=== PATIENT | female | born 1945 | race Caucasian/White ===

== ENCOUNTER 2020-06-01 12:49 | Outpatient (CLI) | payer MEDICARE, SELFPAY ==
--- NOTE | ~2020-06-01 | XR_ITS ---
EXAMINATION: XR chest 2V EXAM DATE: 06/01/2020 13:16 INDICATION: Cough. TECHNIQUE: Frontal and lateral projections of the chest obtained and reviewed. Comparison is made to prior examination from 05/04/2017. FINDINGS: The lungs are clear. There are no pleural effusions. The cardiomediastinal silhouette is within normal limits. There is no pneumothorax suspected. The bones and soft tissues are unremarkab le. IMPRESSION: No acute cardiopulmonary findings. Reviewed, dictated and finalized at location A.
== END 2020-06-01 12:50 | disposition home or self-care (01) ==
LOC: ANHIMG 12:58
DX: R05 Cough (principal)
CPT/HCPCS: 71046

== ENCOUNTER 2021-01-20 13:00 | Outpatient (CLI) | payer MEDICARE, SELFPAY ==
--- NOTE | ~2021-01-20 | MM_ITS ---
EXAMINATION: MM screening [facility] w [facility] HISTORY: Screening mammogram TECHNIQUE: Craniocaudal and mediolateral oblique 3-D tomosynthesis images were obtained and synthetic 2-D images were generated. CAD analysis was submitted and interpreted. COMPARISON: 07/07/2019, 06/13/2018, 06/06/2017 bilateral digital screening mammogram examinations BREAST PARENCHYMAL COMPOSITION: There are scattered areas of fibroglandular density. FINDINGS: There is no evidence of suspicious mass, calcification, or architectural distortion to sugg est malignancy in either breast. There has been no suspicious interval change. IMPRESSION: 1. No mammographic evidence of malignancy. 2. Recommend routine screening mammography in one year. BI-RADS Category 1: Negative Reviewed, dictated and finalized at location A. NG [employer]
--- NOTE | ~2021-01-20 | DEXA_ITS ---
Bone Density Report Name: Liza Mejia Age: 75 Sex: Female Ethnicity: White Date of : 1945 Indication: postmenopausal; seizure disorder; hysterectomy; Referring Provider: LASHONDA DOTSON Study: Bone densitometry was performed. Exam Date: January 20, 2021 Accession number: [id number] Bone Density: Region BMD T-score Z-score Classification AP Spine (L1-L4) 1.008 -0.4 2.0 Normal Femoral Neck (Left) 0.699 -1.4 0.7 Osteopenia Total Hip (Left) 0.826 -1.0 0.8 Normal Total Hip Bilateral Avg 0.856 -0.8 1.1 Normal Femoral Neck (Right) 0.735 -1.0 1.0 Normal Total Hip (Right) 0.885 -0.5 1.3 Normal World Health Organization criteria for BMD impression classify patients as: Normal (T-score at or above -1.0), Osteopenia (T-score between -1.0 and -2.5), or Osteoporosis (T-score at or below -2.5). 10-year Fracture Risk(1): Major Osteoporotic Fracture 10% Hip Fracture 1.8% Reported Risk Factors: [place] (), Neck BMD=0.699, BMI=27.7 (1) FRAX(R) Version 3.08. Fracture probability calculated for an untreated patient. Fracture probability may be lower if the patient has received treatment. Previous Exams: Region Exam Age BMD T-score BMD Change BMD Change Date g/cm2 vs Baseline vs Previous AP Spine(L1-L4) 01/20/2021 75 1.008 -0.4 0.067(7.1%)# 0.067(7.1%)# 03/18/2014 68 0.941 -1.0 Total Hip(Left) 01/20/2021 75 0.826 -1.0 -0.067(-7.5%)# -0.067(-7.5%)# 03/18/2014 68 0.892 -0.4 Total Hip(Right) 01/20/2021 75 0.885 -0.5 -0.016(-1.8%)# -0.016(-1.8%)# 03/18/2014 68 0.900 -0.3 *Denotes significance at 95% confidence level, LSC for AP Spine = 0.022 g/cm2, LSC for Total Hip = 0.027 g/cm2 Clinical Information Provided by Patient: Has used the following medications: Calcium Has the following medical conditions: Any Seizure Disorders, Hysterectomy Patient maximum height was 59 Menopause Age: 47 Drinks caffeinated beverages Onset of menses at age 12 Number of children 2 Impression: The patient has low bone mass, based on the Left Femoral Neck T-score. The patient has an estimated ten-year risk of hip fracture of 1.8% and an estimated ten-year risk of major fracture of 10%, based on the WHO FRAX algorithm. No significant bone loss was observed. Discussion: BONE DENSITY IS LOW AT ONE OR MORE SKELETAL SITES. This patient's lowest T-score is low at one or more skeletal sites. It meets the World Health Organization's (WHO) c
== END 2021-01-20 13:01 | disposition home or self-care (01) ==
DX: Z13.820 Encounter for screening for osteoporosis (principal); Z78.0 Asymptomatic menopausal state; Z12.31 Encounter for screening mammogram for malignant neoplasm of breast; M85.852 Other specified disorders of bone density and structure, left thigh
CPT/HCPCS: 77063; 77067; 77080

== ENCOUNTER 2022-03-23 08:33 | Outpatient (CLI) | payer MEDICARE, SELFPAY ==
--- NOTE | ~2022-03-23 | MM_ITS ---
EXAMINATION: MM screening [facility] BI w [facility] HISTORY: Screening TECHNIQUE: Craniocaudal and mediolateral oblique 3-D tomosynthesis images were obtained and synthetic 2-D images were generated. CAD analysis was submitted and interpreted. COMPARISON: Comparison to multiple prior studies sequentially, with oldest reviewed study dated 06/2015. BREAST PARENCHYMAL COMPOSITION: Breast composed of scattered areas of fibroglandular density FINDINGS: There is no evidence of suspicious mass, calcification, or architectural distortion to sugg est malignancy in either breast. There has been no suspicious interval change. IMPRESSION: 1. No mammographic evidence of malignancy. 2. Recommend routine screening mammography in one year. BI-RADS Category 1: Negative Reviewed, dictated and finalized at location A.
== END 2022-03-23 08:34 | disposition home or self-care (01) ==
DX: Z12.31 Encounter for screening mammogram for malignant neoplasm of breast (principal)
CPT/HCPCS: 77063; 77067

== ENCOUNTER 2023-06-21 10:04 | Outpatient (CLI) | payer MEDICARE, SELFPAY ==
--- NOTE | ~2023-06-21 | MM_ITS ---
EXAMINATION: MM screening [facility] BI w [facility] HISTORY: Screening mammogram TECHNIQUE: Craniocaudal and mediolateral oblique 3-D tomosynthesis images were obtained and synthetic 2-D images were generated. CAD analysis was submitted and interpreted. COMPARISON: 03/23/2022, 01/20/2021, 07/07/2019 BREAST PARENCHYMAL COMPOSITION: There are scattered areas of fibroglandular density. FINDINGS: No suspicious mass, calcification, or architectural distortion are identified in either colby ast to suggest malignancy. There has been no suspicious interval change. IMPRESSION: 1. No mammographic evidence of malignancy. 2. Recommend routine screening mammography in one year. BI-RADS Category 1: Negative Reviewed, dictated and finalized at location A.
== END 2023-06-21 10:05 | disposition home or self-care (01) ==
DX: Z12.31 Encounter for screening mammogram for malignant neoplasm of breast (principal)
CPT/HCPCS: 77063; 77067

== ENCOUNTER 2024-02-14 15:06 | Outpatient (CLI) | payer MEDICARE, SELFPAY ==
--- NOTE | ~2024-02-14 | DEXA_ITS ---
Bone Density Report Name: SLY SOLIS Age: 78 Sex: Female Ethnicity: White Date of : 1945 Indication: postmenopausal; screening for osteoporosis; hysterectomy; Referring Provider: UNKNOWN, UNKNOWN Study: Bone densitometry was performed. Exam Date: February 14, 2024 Accession number: [id number] Bone Density: Region BMD T-score Z-score Classification AP Spine(L1-L4) 0.960 -0.8 1.8 Normal Femoral Neck (Left) 0.730 -1.1 1.1 Osteopenia Total Hip (Left) 0.889 -0.4 1.5 Normal Femoral Neck (Right) 0.740 -1.0 1.2 Normal Total Hip (Right) 0.869 -0.6 1.3 Normal Total Hip Mean 0.879 -0.5 1.4 Normal World Health Organization criteria for BMD impression classify patients as: Normal (T-score at or above -1.0), Osteopenia (T-score between -1.0 and -2.5), or Osteoporosis (T-score at or below -2.5). 10-year Fracture Risk(1): Major Osteoporotic Fracture 11% Hip Fracture 2.1% Reported Risk Factors: [place] (), Neck BMD=0.730, BMI=26.5 (1) FRAX(R) Version 3.08. Fracture probability calculated for an untreated patient. Fracture probability may be lower if the patient has received treatment. Previous Exams: Region Exam Age BMD T-score BMD Change BMD Change Date g/cm2 vs Baseline vs Previous AP Spine (L1-L4) 02/14/2024 78 0.960 -0.8 -0.047 (-4.7%) -0.047 (-4.7%) 01/20/2021 75 1.008 -0.4 Total Hip(Left) 02/14/2024 78 0.889 -0.4 0.064 (7.7%)* 0.064 (7.7%)* 01/20/2021 75 0.826 -1.0 Total Hip(Right) 02/14/2024 78 0.869 -0.6 -0.015 (-1.7%) -0.015 (-1.7%) 01/20/2021 75 0.885 -0.5 *Denotes significance at 95% confidence level, LSC for AP Spine = 0.022 g/cm2, LSC for Total Hip = 0.027 g/cm2 Clinical Information Provided by Patient: Has used the following medications: HRT (i.e. estrogen/hormone therapy), Calcium Has the following medical conditions: Hysterectomy Patient maximum height was 59 Menopause Age: 47 No regular weight bearing exercise Drinks caffeinated beverages Onset of menses at age 12 Number of children 2 Impression: The patient has low bone mass, based on the Left Femoral Neck T-score. The patient has an estimated ten-year risk of hip fracture of 2.1% and an estimated ten-year risk of major fracture of 11%, based on the WHO FRAX algorithm. The BMD for the AP Spine (L1-L4) decreased, changing by -4.7% since the last DXA exam. Discussion: BONE DENSITY IS LOW AT ONE OR MORE SKELETA
== END 2024-02-14 15:07 | disposition home or self-care (01) ==
DX: Z78.0 Asymptomatic menopausal state (principal); Z13.820 Encounter for screening for osteoporosis; M85.852 Other specified disorders of bone density and structure, left thigh
CPT/HCPCS: 77080

== ENCOUNTER 2024-04-27 15:26 | Inpatient (IN) | payer MEDICARE, SELFPAY ==
[2024-04-27] VITALS (26 sets, daily range): BP systolic 68–157; BP diastolic 40–86; PULSE 44–81; RESP 12–22; TEMP 36.2–36.6; O2SAT 96–100; BMI 26.0; BMI 27.6
--- NOTE | ~2024-04-27 | CT_ITS ---
CT abdomen pelvis w con Ordering provider: Jose Carbone History: 78 years Female with . ab pain . Comparison: None. Technique: CT abdomen and pelvis with IV and without oral contrast. Radiation reduction technique uti lized. The DLP is 281.35 mGy. Findings: VISUALIZED LOWER CHEST: Bilateral dependent atelectatic changes. UPPER ABDOMINAL ORGANS: Liver: Normal. Gallbladder: Normal. Spleen: Normal. Stomach/duodenum: Small sliding hiatus hernia. Pancreas: Slight dilatation of the pancreatic duct. Possibility of pancreatic divisum is not excluded . Adrenals: Normal. Kidneys: Tiny cyst in the left kidney midpole medially tiny cyst in the right kidney midpole laterall y. PELVIC ORGANS: The bladder shows slightly thickened wall. BOWEL AND MESENTERY: Colon: Thickened wall of the rectum and sigmoid colon with no definite diverticulitis. Colitis is pos sible. Appendix is not demonstrated. Small Bowel: Normal. No obstruction. Peritoneum/mesentery: No free air or free fluid. No mesenteric lymphadenopathy. RETROPERITONEUM: Mild atheromatous disease of the abdominal aorta. Small bilateral aortic lymph nod es are noted. MUSCULOSKELETAL: Superficial soft tissues: The superficial soft tissues are normal. Bones: Age appropriate degenerative changes of the spine. Compression fracture of T11 and T12 is note d most likely chronic. Bilateral sacroiliacs. IMPRESSION: 1. Slightly thickened wall of the rectum and sigmoid colon extending to the right hepatic flexure. T his is suggestive of colitis. Follow-up advised. 2. Small sliding hiatus hernia. Reviewed, dictated and finalized at location A. IMPRESSION: 1. Slightly thickened wall of the rectum and sigmoid colon extending to the ri ght hepatic flexure. This is suggestive of colitis. Follow-up advised. 2. Small sliding hiatus hernia.
--- NOTE | ~2024-04-27 | CT_ITS ---
CT brain wo con Ordering provider: Jose Carbone MD History: 78 years Female with . trauma . Comparison: None. Technique: CT of the head without contrast. Radiation reduction technique utilized. The DLP is 529.67 mGy. FINDINGS: BRAIN PARENCHYMA AND CSF SPACES: Deep white matter ischemic changes with mild brain atrophy. No midli ne shift, mass effect or hemorrhage. The brain parenchyma and CSF spaces are otherwise normal. VISUALIZED PARANASAL SINUSES: Well aerated. MASTOIDS: Well aerated. BONES: The bones appear intact. SOFT TISSUES: Visualized nasopharynx is normal. Superficial soft tissues are normal. IMPRESSION: No acute intracranial findings. Reviewed, dictated and finalized at location A.
--- NOTE | 2024-04-27 15:26 | ECG_ITS ---
Test Date: 2024-04-27 15:51:29 Measurements Intervals Apex Rate: 43 P: 23 MA: 176 QRS: 30 QRSD: 84 T: 38 QT: 481 QTc: 411 Interpretive Statements MARKED SINUS BRADYCARDIA ABNORMAL ECG No previous ECG available for comparison Electronically Signed On 04-28-2024 11:30:01 CDT by Krishna Chau M.D.
--- NOTE | 2024-04-27 15:38 | ED.ABDPAIN ---
HPI - Abdominal Pain General Chief Complaint: Abdominal Pain <Jose Carbone MD - Last Filed: 04/28/24 07:03> Stated Complaint: DIVERTICULITIS FLARE, NEAR SYNCOPAL EVENT <Jose Carbone MD - Last Filed: 04/28/24 07:03> Time Seen by Provider: 04/27/24 16:58 <Jose Carbone MD - Last Filed: 04/28/24 07:03> Source: patient <Elle Smith PA-C - Last Filed: 04/27/24 18:10> Mode of arrival: EMS <Elle Smith PA-C - Last Filed: 04/27/24 18:10> Limitations: no limitations <Elle Smith PA-C - Last Filed: 04/27/24 18:10> History of Present Illness HPI narrative: 78-year-old female presenting to the emergency department for evaluation for a syncopal episode and head injury. Patient has been dealing with issues with suspected diverticulitis over the course of the last week. Patient initially had some issues with constipation had lower abdominal pain. Patient had follow-up with primary care physician and was started on what sounds to be Cipro and Flagyl. Patient was also taking some stool softeners. Patient reports that she did have results from the stool softeners. Patient was walking to the bathroom when she almost had a syncopal episode hand after using the bathroom patient had a 2nd syncopal episode resulting in a fall and head injury. Patient denies any pain or injury other than a contusion to her forehead <Jose Carbone MD - Last Filed: 04/28/24 07:03> Related Data Home Medications: Home Medications Medication Instructions Recorded Confirmed amlodipine 10 mg tablet (Norvasc) 10 mg PO DAILY 04/27/24 04/27/24 atorvastatin 20 mg tablet (Lipitor) 20 mg PO DAILY 04/27/24 04/27/24 ciprofloxacin HCl 500 mg tablet 500 mg PO DAILY 04/27/24 04/27/24 desoximetasone 0.25 % topical cream 0.25 applic topical PRN PRN eczema 04/27/24 04/27/24 estradiol 0.05 mg/24 hr weekly 0.05 mg transdermal WEEKLY hot 04/27/24 04/27/24 transdermal patch (Climara) flashes fluoride (sodium) 1.1 % dental 1.1 applic dental DAILY for crowns 04/27/24 04/27/24 cream (PreviDent 5000 Plus) hydroxychloroquine 200 mg tablet 200 mg PO BID 04/27/24 04/27/24 labetalol 300 mg tablet 300 mg PO BID 04/27/24 04/27/24 lisinopril 40 mg tablet 40 mg PO BID 04/27/24 04/27/24 metronidazole 250 mg tablet 250 mg PO DAILY Diverticulitis 04/27/24 04/27/24 omeprazole 20 mg capsule,delayed 20 mg PO DAILY 04/27/24 04/27/24 release ondansetron HCl 4 mg tablet 4 mg PO PRN VOMITING 04/27/24 04/27/24 phenobarbital 16.2 mg tablet 16.2 mg PO BID Diverticulitis 04/27/24 04/27/24 sertraline 50 mg tablet 50 mg PO DAILY 04/27/24 04/27/24 trazodone 100 mg tablet 100 mg PO HS 04/27/24 04/27/24 zolpidem 12.5 mg tablet,extended 12.5 mg PO HS help with sleep 04/27/24 04/27/24 release,multiphase <Jose Carbone MD - Last Filed: 04/28/24 07:03> Allergies/Adverse Reactions: Allergies Allergy/AdvReac Type Severity Reaction Status Date / Time NSAIDS (Non-Steroidal Allergy Unknown abdominal Verified 04/27/24 20:05 Anti-Inflamma pain Penicillins Allergy Unknown blisters Verified 04/27/24 20:05 albuterol Allergy Numbness Verified 04/27/24 20:05 <Jose Carbone MD - Last Filed: 04/28/24 07:03> Review of Systems Review of Systems: All systems reviewed & are unremarkable except as noted in HPI and below <Jose Carbone MD - Last Filed: 04/28/24 07:03> [facility] Past Medical History Medical History: Medical History (Updated 04/27/24 @ 22:40 by Carina Hermosillo PA-C) Gastroesophageal reflux disease Hyperlipidemia Hypertension <Jose Carbone MD - Last Filed: 04/28/24 07:03> Surgical History Surgical History: Surgical History (Updated 04/27/24 @ 22:38 by Carina Hermosillo PA-C) History of bilateral cataract extraction History of bunionectomy of both great toes History of hysterectomy History of sinus surgery History of tonsillectomy <Jose Carbone MD - Last Filed: 04/28/24 07:
[2024-04-27 15:49] LABS: Basophils Percent Auto 0.4 % (0.2-1.2); Hematocrit 33.1 % (37.0-47.0); Hemoglobin 11.1 g/dL (12.0-15.0); Immature Granulocyte Absolute 0.05 K/mm3 (0.00-0.031); Immature Granulocyte Percent A 0.6 % (0-0.5); Lymphocytes Absolute Auto 1.24 K/mm3 (0.9-3.2); Lymphocytes Percent Auto 14.6 % (18.3-44.2); Mean Corpuscular HGB Conc 33.5 g/dl (32-36); Mean Corpuscular Hemoglobin 31.4 pg (26-34); Mean Corpuscular Volume 93.8 fl (80-100); Mean Platelet Volume 9.7 fl (7.4-10.4); Monocytes Absolute Auto 0.7 K/mm3 (0.1-0.6); Monocytes Percent Auto 8.2 % (2.6-8.5); Neutrophils Absolute Auto 6.5 K/mm3 (1.3-6.7); Neutrophils Percent Auto 76.2 % (45.5-73.1); Platelet Count Result 261 k/mm3 (150-375); Red Blood Count 3.53 M/mm3 (4.2-5.4); Red Cell Distribution Width 12.8 % (11.5-14.5); White Blood Count 8.5 K/mm3 (4.5-10.0)
[2024-04-27] MEDS: SODIUM CHLORIDE 0.9% IV 1,000 ML 999 ML IV CONT (16:10)
[2024-04-27 16:18] LABS: Alanine Aminotransferase 17 U/L (6-35); Albumin Level 3.4 g/dL (3.5-5.1); Alkaline Phosphatase 49 U/L (38-126); Anion Gap 6 mmol/L (4-12); Aspartate Amino Transferase 28 U/L (14-36); Bilirubin,Total 0.2 mg/dL (0.2-1.3); Blood Urea Nitrogen 15 mg/dL (7-17); Calcium 9.9 mg/dL (8.4-10.2); Carbon Dioxide 25 mmol/L (22-30); Chloride 103 mmol/L (98-107); Estimated Glomerular Filt Rate 40; Glucose 105 mg/dL (65-110); Lipase 77 U/L (23-300); Potassium 3.4 mmol/L (3.4-5.0); Sodium 134 mmol/L (137-145)
[2024-04-27 16:19] LABS: Lactic Acid Reflex 1.1 mmol/L (0.7-2.0)
[2024-04-27] MEDS: LACTATED RINGERS 1,000 ML 500 ML IV CONT (17:08)
[2024-04-27 18:44] LABS: Appearance Urine Cloudy (Clear); Bacteria Urine 4+ /hpf; Bilirubin Urine Negative (Negative); Blood Urine Negative (Negative); Color Urine Yellow (Yellow); Glucose Urine UA Negative (Negative); Ketones Urine Negative (Negative); Leukocyte Esterase Ur Negative LEU/UL (Negative); Need Manual Microscopic Reviewed; Nitrate Urine Negative (Negative); Protein Urine Negative (Negative); Squamous Epithelial Cell Urine Few /hpf (Few); Urobilinogen Urine 0.2 mg/dL (<2.0)
[2024-04-27 18:47] LABS: Add Urine Microscopic? YES
--- NOTE | 2024-04-27 18:57 | PM.IMHP ---
H&P: HPI History of Present Illness Date/Time: 04/27/24 19:30 Chief Complaint: Syncope. Narrative: This is a very pleasant 78-year-old female who presented to the emergency department via EMS from home for evaluation after several syncopal episodes. The patient provides the following history. She has not been feeling well for nearly a week and initially had nausea and vomiting for about 5 days. She reports being constipated as well but then describes tenesmus. Her doctor called her in some Zofran and she saw him in office the next day at which time she was diagnosed with suspected diverticulitis as she had tenderness to palpation in the left lower quadrant. She has since started to have ?mushy? bowel movements after starting stool softeners. Not long prior to arrival she was on the toilet having a bowel movement when she developed abdominal cramping with weakness, lightheadedness, nausea, and diaphoresis. She has and passed out and fell forward, hitting her head. heard her fall and came to help her up at which time she had a 2nd syncopal episode. She lost consciousness again when he tried to get her up so he called 911. She denies fever, recent antibiotic use, sick contacts, vertigo, visual changes, chest pain, shortness of breath, pleuritic pain, palpitations, sensations of racing heart, hematemesis, melena, and hematochezia. In the ED: She was afebrile on arrival. Orthostatic vital signs were positive (105/53 to 68/40). Pulse has been in the mid to upper 40s to 50s a majority of the time. Labs were significant for WBC count of 8.5, hemoglobin 11.1, sodium 134, BUN 15, creatinine 1.30, total protein 6.0, albumin 3.4. Urine was cloudy with 11 to 20 WBC and 4+ bacteria. No nitrites or leukocyte esterase noted. Head CT showed no acute findings. CT of the abdomen and pelvis shows slightly thickened wall of the rectum and sigmoid colon extending to the right hepatic flexure suggestive of colitis and a small sliding hiatus hernia. She was given an IV fluid bolus with improvement in her orthostatic vital signs. She was started on ceftriaxone and metronidazole for colitis and she is being admitted in this setting for further treatment and evaluation. Review of Systems Review of Systems: 12 systems were reviewed and are negative except for as per HPI. [facility] Past Medical History Medical History (Updated 04/27/24 @ 22:40 by Carina Hermosillo PA-C) Gastroesophageal reflux disease Hyperlipidemia Hypertension Surgical History Surgical History (Updated 04/27/24 @ 22:38 by Carina Hermosillo PA-C) History of bilateral cataract extraction History of bunionectomy of both great toes History of hysterectomy History of sinus surgery History of tonsillectomy Family History Family History Other Colon cancer Diabetes mellitus Lung cancer Social History Social History (Updated 04/27/24 @ 22:39 by Carina Hermosillo PA-C) Social History: Surrogate medical decision maker: Ana Yen, spouse. Code status: Full code. Smoking status: Never smoker Second hand tobacco smoke exposure: Yes Alcohol intake: current Substance use: never Do You Feel Safe in your Home?: Yes Lack of Transportation: No Lack of Food: Never True Current Housing: Decline to Answer Concerned About Future Housing: No Difficulty Paying Gas/Electric Bills: No Difficulty Paying for Meds: No Currently Unemployed: No Education: Decline to Answer Difficulty w/ Childcare or Family Care: No Spiritual care concerns: No Meds Home Medications and Allergies Home Medications Medication Instructions Recorded Confirmed Type amlodipine 10 mg tablet (Norvasc) 10 mg PO DAILY 04/27/24 04/27/24 History atorvastatin 20 mg tablet (Lipitor) 20 mg PO DAILY 04/27/24 04/27/24 History ciprofloxacin HCl 500 mg tablet 500 mg PO DAILY 04/27/24 04/27/24 History desoximetasone 0.25 % topical cr
--- NOTE | 2024-04-27 20:04 | PC.NURSE ---
This patient, Liza Mejia, was admitted to Medical Room 345-01. Patient/family oriented to hospital policies and general routines including ID bracelet, bed and alarms, visiting hours, pain management, procedures, bathroom and other care routines, personal items, smoking policy, room service/diet, and visiting hours. Information on how to activate the Rapid Response Team has been discussed. Patient/Family are encouraged to report perceived risks to care and to ask questions if they do not understand what they are told or what they should do.
[2024-04-27] MEDS: SODIUM CHLORIDE 0.9% IV 1,000 ML 100 ML IV CONT (22:39)
[2024-04-27] MEDS: traZODone HCL 50 MG TABLET 100 MG PO (22:40)
[2024-04-27] MEDS: HYDROXYCHLOROQUINE SULFATE 200 MG TABLET PO (22:40)
[2024-04-27] MEDS: metroNIDAZOLE 500 MG/ISO 100ML 500 MG/100 ML BAG 100 MG IVPB (22:40)
[2024-04-28] VITALS (14 sets, daily range): BP systolic 120–183; BP diastolic 44–75; PULSE 67–77; RESP 16–20; TEMP 36.2–36.9; O2SAT 98–100
[2024-04-28] MEDS: metroNIDAZOLE 500 MG/ISO 100ML 500 MG/100 ML BAG 100 MG IVPB ×3 (05:23→21:19)
[2024-04-28 05:52] LABS: Hematocrit 31.2 % (37.0-47.0); Hemoglobin 10.1 g/dL (12.0-15.0); Mean Corpuscular HGB Conc 32.4 g/dl (32-36); Mean Corpuscular Hemoglobin 31.5 pg (26-34); Mean Corpuscular Volume 97.2 fl (80-100); Mean Platelet Volume 9.8 fl (7.4-10.4); Platelet Count Result 229 k/mm3 (150-375); Red Blood Count 3.21 M/mm3 (4.2-5.4); Red Cell Distribution Width 12.9 % (11.5-14.5); White Blood Count 8.2 K/mm3 (4.5-10.0)
[2024-04-28 06:09] LABS: Anion Gap 5 mmol/L (4-12); Blood Urea Nitrogen 11 mg/dL (7-17); Calcium 8.6 mg/dL (8.4-10.2); Carbon Dioxide 22 mmol/L (22-30); Chloride 108 mmol/L (98-107); Estimated Glomerular Filt Rate 54; Glucose 91 mg/dL (65-110); Magnesium 1.7 mg/dL (1.6-2.3); Sodium 135 mmol/L (137-145)
[2024-04-28] MEDS: ATORVASTATIN 20 MG TABLET PO (08:28)
[2024-04-28] MEDS: POTASSIUM CHLORIDE 20 MEQ ER TABLET 40 MEQ PO (08:28)
[2024-04-28] MEDS: PANTOPRAZOLE 40 MG TABLET PO (08:29)
[2024-04-28] MEDS: SERTRALINE HCL 50 MG TABLET PO (08:29)
[2024-04-28 12:27] LABS: Potassium 2.9 mmol/L (3.4-5.0)
--- NOTE | 2024-04-28 12:41 | PM.IMPN ---
Progress Note: A&P Assessment and Plan (1) Syncope: Qualifiers: Syncope type: unspecified Qualified Code(s): R55 - Syncope and collapse Code(s): R55 - Syncope and collapse Status: Acute Assessment and Plan: Patient presented to the ED due to syncope and collapse. She was found to have positive orthostatics as well as CT scan showing colitis. Monitor on telemetry Echocardiogram pending. Could be due to high vagal tone as she is now in a sinus rhythm. Labetalol has been placed on hold as have her other antihypertensives given the orthostasis. Dry on presentation and started on IV fluids. Continue to monitor orthostatic vital signs initiate fall precautions. (2) Orthostatic hypotension: Code(s): I95.1 - Orthostatic hypotension Status: Acute Assessment and Plan: Orthostatics on presentation 157/61 laying, 141/68 sitting and 131/65 standing 04/28 orthostatics was 62/64 lying, 156/63 sitting, 146/70 standing (not positive) IV fluids discontinued. (3) Colitis: Code(s): K52.9 - Noninfective gastroenteritis and colitis, unspecified Status: Acute Assessment and Plan: Patient experiencing lower abdominal pain as well as diarrhea presentation. CT abdomen pelvis shows slightly thickened rectal wall and sigmoid colon extending to the right hepatic flexure suggestive of colitis. Started on Rocephin and Flagyl 04/27 Stool cultures pending Patient tolerating diet (4) Dehydration: Code(s): E86.0 - Dehydration Status: Resolved Assessment and Plan: Patient dry on presentation and fluids given. 04/28 IV fluids discontinued. (5) Hypokalemia: Code(s): E87.6 - Hypokalemia Status: Acute Assessment and Plan: 04/28 potassium of 3.0 patient given 40 meq p.o. potassium chloride. Repeat potassium in the afternoon showed a potassium of 2.9. Patient given IV potassium chloride. Will repeat potassium this evening. Likely due to patient's diarrhea and IV fluid hydration. IV fluids discontinued. (6) Hypertension: Code(s): I10 - Essential (primary) hypertension Status: Acute Assessment and Plan: Hold labetalol due to positive orthostatics and bradycardia on presentation. (7) Bradycardia: Code(s): R00.1 - Bradycardia, unspecified Status: Resolved Assessment and Plan: Resolved after starting on IV fluids. Subjective Date/time seen: 04/28/24 12:41 Interval history: Patient feeling much better and denies any dizziness or lightheadedness when sitting or standing and also says her diarrhea is resolved. She denies any urinary frequency, urgency or dysuria. Will likely be able to discharge once urine cultures come back. She is eating and drinking appropriately Exam Narrative: GENERAL: Comfortable, no acute distress HENMT: moist mucous membranes EYES: EOM intact b/l NECK: no lymphadenopathy RESPIRATORY: clear to auscultation, no increased respiratory effort CARDIO: Regular rate and rhythm GI: soft, nontender, bowel sounds present SKIN/EXTREMITIES: no rashes, no edema, no redness or tenderness NEURO: PROM intact, answers questions appropriately, A&O x4 Objective Data Vital Signs Vital Signs: Vital Signs - 24 hr 04/27/24 15:36 04/27/24 16:04 04/27/24 16:04 Temperature 97.9 F Pulse Rate 49 L 44 L 46 L Respiratory Rate 16 Blood Pressure 109/63 114/60 105/53 L Pulse Oximetry 100 Oxygen Delivery Room Air 04/27/24 16:04 04/27/24 17:50 04/27/24 17:50 Temperature Pulse Rate 50 L 57 L 68 Respiratory Rate Blood Pressure 68/40 L 136/63 139/86 Pulse Oximetry Oxygen Delivery 04/27/24 17:50 04/27/24 15:36 04/27/24 15:37 Temperature Pulse Rate 69 49 L 48 L Respiratory Rate 19 12 Blood Pressure 118/59 L 109/63 Pulse Oximetry 100 96 Oxygen Delivery 04/27/24 15:45 04/27/24 15:46 04/27/24 16:
[2024-04-28] MEDS: POTASSIUM CHLORIDE INJ 40 MEQ in SODIUM CHLORIDE 0.9% IV 500 ML 130 MEQ IVPB (16:26)
--- NOTE | 2024-04-28 19:03 | ECHO_ITS ---
Patient Info Name: Liza Mejia Age: 78 years : 1945 Gender: Female Ht: 59 in Wt: 126 lbs BSA: 1.56 m2 HR: 68 bpm BP: 120 / 44 mmHg Heart Rhythm: Sinus Rhythm Technical Quality: Good Exam Date: 04/28/2024 7:42 AM Exam Location: Echo Lab Patient Status: Outpatient Admit Date: 04/27/2024 Staff Ordering Physician: Carina Hermosillo PA-C Transmission And Protection Engineer: Renuka Jeong RDCS Attending Provider: Alcon Dave MD Referring Physician: Jaimee OSBORNE; Exam Type: CA echo doppler color flow Study Info Indications R00.1 - Bradycardia, unspecified R55 - Syncope and collapse Complete two-dimensional, color flow and Doppler transthoracic echocardiogram is performed. Summary 1. Complete two-dimensional, color flow and Doppler transthoracic echocardiogram is performed. 2. Normal left ventricular size with hyperdynamic systolic function and grade 1 diastolic noncompliance. 3. Sigmoid septal hypertrophy of the elderly. 4. Mild left atrial enlargement. 5. Trivial mitral regurgitation. Left Ventricle Left ventricular chamber dimension is normal. Left ventricular systolic function is hyperdynamic, estimated at >70%. The left ventricular diastolic function is grade I diastolic dysfunction. Right Ventricle Right ventricular chamber dimension is normal. Left Atria Left atrial chamber dimension is mildly enlarged. Right Atria Right atrial chamber dimension is normal. Aortic Valve The aortic valve is trileaflet. There is mild aortic valve sclerosis. Pulmonic Valve The pulmonic valve is normal. Mitral Valve The mitral valve has normal leaflets. There is trace mitral valve regurgitation. Tricuspid Valve The tricuspid valve leaflets are normal. Pericardium/Pleural The pericardium appears normal. Aorta The aortic root size at the sinus of Valsalva is normal. Left Ventricular Outflow Tract Name Value Normal LVOT 2D LVOT Diameter 2.0 cm LVOT Doppler LVOT Peak Gradient 8 mmHg LVOT Mean Gradient 4 mmHg LVOT VTI 29 cm LVOT VTI/AV VTI Ratio 0.9 LVOT Stroke Volume 89 ml LVOT CO 6.2 l/min LVOT CI 4.0 l/min/m2 Pulmonic Valve Name Value Normal RVOT Doppler RVOT Peak Gradient 2 mmHg PV Doppler PV Peak Gradient 4 mmHg Mitral Valve Name Value Normal MV Doppler MV Decel Gates 404 cm/s2 MV PHT 65 ms
[2024-04-28] MEDS: traZODone HCL 50 MG TABLET 100 MG PO (21:19)
[2024-04-28] MEDS: ZOLPIDEM TARTRATE (*CRX) 5 MG TABLET 10 MG PO (21:20)
[2024-04-28] MEDS: ONDANSETRON INJ 4 MG/2 ML VIAL IV PUSH (23:30)
[2024-04-29] VITALS (14 sets, daily range): BP systolic 148–193; BP diastolic 68–86; PULSE 69–86; RESP 18–20; TEMP 36.1–36.9; O2SAT 98–100
[2024-04-29] MEDS: PROCHLORPERAZINE EDISYLATE 10 MG/2 ML VIAL IV PUSH (03:31)
[2024-04-29] MEDS: ONDANSETRON INJ 4 MG/2 ML VIAL IV PUSH (05:30)
[2024-04-29] MEDS: metroNIDAZOLE 500 MG/ISO 100ML 500 MG/100 ML BAG 100 MG IVPB (05:30)
[2024-04-29 05:57] LABS: Hemoglobin 10.7 g/dL (12.0-15.0); Mean Corpuscular HGB Conc 33.4 g/dl (32-36); Mean Corpuscular Hemoglobin 31.7 pg (26-34); Mean Corpuscular Volume 94.7 fl (80-100); Mean Platelet Volume 9.8 fl (7.4-10.4); Platelet Count Result 250 k/mm3 (150-375); Red Blood Count 3.38 M/mm3 (4.2-5.4); Red Cell Distribution Width 13.1 % (11.5-14.5); White Blood Count 11.9 K/mm3 (4.5-10.0)
[2024-04-29 06:24] LABS: Anion Gap 6 mmol/L (4-12); Blood Urea Nitrogen 9 mg/dL (7-17); Calcium 8.5 mg/dL (8.4-10.2); Carbon Dioxide 29 mmol/L (22-30); Chloride 104 mmol/L (98-107); Estimated Glomerular Filt Rate > 60; Glucose 111 mg/dL (65-110); Sodium 139 mmol/L (137-145)
[2024-04-29] MEDS: POTASSIUM CHLORIDE 20 MEQ ER TABLET 40 MEQ PO (08:09)
[2024-04-29] MEDS: PANTOPRAZOLE 40 MG TABLET PO ×2 (08:10→20:47)
[2024-04-29] MEDS: POTASSIUM CHLORIDE INJ 40 MEQ in SODIUM CHLORIDE 0.9% IV 500 ML 130 MEQ IVPB (08:10)
[2024-04-29] MEDS: SERTRALINE HCL 50 MG TABLET PO (08:10)
[2024-04-29] MEDS: ATORVASTATIN 20 MG TABLET PO (08:10)
[2024-04-29 12:19] LABS: Potassium 4.3 mmol/L (3.4-5.0)
--- NOTE | 2024-04-29 13:10 | PM.IMPN ---
Progress Note: A&P Assessment and Plan (1) Syncope: Qualifiers: Syncope type: unspecified Qualified Code(s): R55 - Syncope and collapse Code(s): R55 - Syncope and collapse Status: Acute Assessment and Plan: Patient presented to the ED due to syncope and collapse. She was found to have positive orthostatics as well as CT scan showing colitis. Monitor on telemetry Echocardiogram EF >70%, grade I diastolic dysfunction Could be due to high vagal tone as she is now in a sinus rhythm. Labetalol has been placed on hold as have her other antihypertensives given the orthostasis. Dry on presentation and started on IV fluids; IV fluids discontinued on 04/28. Continue to monitor orthostatic vital signs initiate fall precautions. (2) Orthostatic hypotension: Code(s): I95.1 - Orthostatic hypotension Status: Acute Assessment and Plan: Orthostatics on presentation 157/61 laying, 141/68 sitting and 131/65 standing 04/28 orthostatics was 62/64 lying, 156/63 sitting, 146/70 standing (not positive) IV fluids discontinued. (3) Colitis: Code(s): K52.9 - Noninfective gastroenteritis and colitis, unspecified Status: Acute Assessment and Plan: Patient experiencing lower abdominal pain as well as diarrhea presentation. CT abdomen pelvis shows slightly thickened rectal wall and sigmoid colon extending to the right hepatic flexure suggestive of colitis. Started on Rocephin and Flagyl 04/27, changed to Levaquin on 04/29 due to GI upset. Stool cultures NGTD Patient tolerating diet (4) Dehydration: Code(s): E86.0 - Dehydration Status: Resolved Assessment and Plan: Patient dry on presentation and fluids given. 04/28 IV fluids discontinued. (5) Hypokalemia: Code(s): E87.6 - Hypokalemia Status: Acute Assessment and Plan: 04/28 potassium of 3.0 patient given 40 meq p.o. potassium chloride. Repeat potassium in the afternoon showed a potassium of 2.9. Patient given IV potassium chloride. Will repeat potassium this evening. Likely due to patient's diarrhea and IV fluid hydration. IV fluids discontinued. (6) Hypertension: Code(s): I10 - Essential (primary) hypertension Status: Acute Assessment and Plan: Hold labetalol due to positive orthostatics and bradycardia on presentation. (7) Bradycardia: Code(s): R00.1 - Bradycardia, unspecified Status: Resolved Assessment and Plan: Resolved after starting on IV fluids. Subjective Date/time seen: 04/29/24 13:10 Interval history: Patient with persistent nausea vomiting overnight with 1 episode of vomiting this morning. Zofran does not seem to be helping and her medication was changed to Compazine. Nausea vomiting could be due to patient's antibiotics. Transition her to Levaquin. She denies any diarrhea, hematemesis or bilious vomiting. Exam Narrative: GENERAL: Comfortable, no acute distress HENMT: moist mucous membranes EYES: EOM intact b/l NECK: no lymphadenopathy RESPIRATORY: clear to auscultation, no increased respiratory effort CARDIO: Regular rate and rhythm GI: soft,mild lower abdominal tenderness, bowel sounds present SKIN/EXTREMITIES: no rashes, no edema, no redness or tenderness NEURO: PROM intact, answers questions appropriately, A&O x4 Objective Data Vital Signs Vital Signs: Vital Signs - 24 hr 04/28/24 15:11 04/28/24 16:00 04/28/24 22:00 Temperature 97.4 F L 97.5 F L Pulse Rate 69 72 69 Respiratory Rate 18 20 Blood Pressure 152/55 H 183/67 H Pulse Oximetry 100 100 Oxygen Delivery 04/28/24 22:05 04/28/24 22:15 04/28/24 22:00 Temperature 98.4 F 97.1 F L 97.5 F L Pulse Rate 73 77 69 Respiratory Rate 20 20 20 Blood Pressure 179/75 H 176/70 H 183/67 H Pulse Oximetry 100 100 100 Oxygen Delivery 04/29/24 01:55 04/28/24 20:00 04/29/24 00:00 Temperat
[2024-04-29] MEDS: PROCHLORPERAZINE MALEATE 5 MG TABLET PO ×2 (16:24→21:39)
[2024-04-29] MEDS: levoFLOXacin 750 MG TABLET PO (17:14)
[2024-04-29] MEDS: lisinopriL 20 MG TABLET 40 MG PO (17:14)
[2024-04-29] MEDS: LABETALOL HCL 100 MG TABLET 300 MG PO (17:15)
[2024-04-29] MEDS: ZOLPIDEM TARTRATE (*CRX) 5 MG TABLET 10 MG PO (20:47)
[2024-04-29] MEDS: traZODone HCL 50 MG TABLET 100 MG PO (20:47)
[2024-04-30] VITALS (10 sets, daily range): BP systolic 116–165; BP diastolic 63–78; PULSE 76–99; RESP 17–20; TEMP 36.2–36.7; O2SAT 99–100
[2024-04-30 05:35] LABS: Hemoglobin 10.1 g/dL (12.0-15.0); Mean Corpuscular HGB Conc 32.6 g/dl (32-36); Mean Corpuscular Hemoglobin 31.5 pg (26-34); Mean Corpuscular Volume 96.6 fl (80-100); Mean Platelet Volume 9.7 fl (7.4-10.4); Platelet Count Result 228 k/mm3 (150-375); Red Blood Count 3.21 M/mm3 (4.2-5.4); Red Cell Distribution Width 12.8 % (11.5-14.5); White Blood Count 12.1 K/mm3 (4.5-10.0)
[2024-04-30 05:55] LABS: Anion Gap 4 mmol/L (4-12); Blood Urea Nitrogen 8 mg/dL (7-17); Calcium 8.1 mg/dL (8.4-10.2); Carbon Dioxide 22 mmol/L (22-30); Chloride 108 mmol/L (98-107); Estimated Glomerular Filt Rate > 60; Glucose 98 mg/dL (65-110); Potassium 3.8 mmol/L (3.4-5.0); Sodium 134 mmol/L (137-145)
[2024-04-30] MEDS: SERTRALINE HCL 50 MG TABLET PO (08:07)
[2024-04-30] MEDS: amLODIPine BESYLATE 5 MG TABLET 10 MG PO (08:07)
[2024-04-30] MEDS: PANTOPRAZOLE 40 MG TABLET PO (08:07)
[2024-04-30] MEDS: LABETALOL HCL 100 MG TABLET 300 MG PO (08:07)
[2024-04-30] MEDS: ATORVASTATIN 20 MG TABLET PO (08:07)
[2024-04-30] MEDS: lisinopriL 20 MG TABLET 40 MG PO (08:07)
--- NOTE | 2024-04-30 10:58 | PM.DS ---
DS: Admitting Diagnosis Discharge Date 04/30/24 Admitting Diagnosis colitis, syncope DS: Discharge Diagnosis Discharge Diagnosis (1) Syncope: Qualifiers: Syncope type: unspecified Qualified Code(s): R55 - Syncope and collapse Code(s): R55 - Syncope and collapse Status: Acute (2) Orthostatic hypotension: Code(s): I95.1 - Orthostatic hypotension Status: Acute (3) Colitis: Code(s): K52.9 - Noninfective gastroenteritis and colitis, unspecified Status: Acute (4) Dehydration: Code(s): E86.0 - Dehydration Status: Resolved (5) Hypokalemia: Code(s): E87.6 - Hypokalemia Status: Acute (6) Hypertension: Code(s): I10 - Essential (primary) hypertension Status: Acute (7) Bradycardia: Code(s): R00.1 - Bradycardia, unspecified Status: Resolved DS: Summary Hospital Course Hospital Course: This is a very pleasant 78-year-old female who presented to the emergency department via EMS from home for evaluation after several syncopal episodes. She had not been feeling well for nearly a week and initially had nausea and vomiting for about 5 days.Her doctor called her in some Zofran and she saw him in office the next day at which time she was diagnosed with suspected diverticulitis as she had tenderness to palpation in the left lower quadrant. Not long prior to arrival she was on the toilet having a bowel movement when she developed abdominal cramping with weakness, lightheadedness, nausea, and diaphoresis. She has and passed out and fell forward, hitting her head. In the ED: She was afebrile on arrival. Orthostatic vital signs were positive (105/53 to 68/40). Pulse has been in the mid to upper 40s to 50s a majority of the time. Urine was cloudy with 11 to 20 WBC and 4+ bacteria. No nitrites or leukocyte esterase noted. Head CT showed no acute findings. CT of the abdomen and pelvis shows slightly thickened wall of the rectum and sigmoid colon extending to the right hepatic flexure suggestive of colitis and a small sliding hiatus hernia. She was given an IV fluid bolus with improvement in her orthostatic vital signs. She was started on ceftriaxone and metronidazole for colitis and she is being admitted in this setting for further treatment and evaluation. Patient's diarrhea improved during hospital stay. On 04/29/2024 she did develop some nausea vomiting although she denied any abdominal pain at that time. She did not have any hematemesis or bilious emesis. It is thought to be due to IV antibiotics, specifically Flagyl. Discussed with ID pharmacist and her antibiotics were changed to p.o. Levaquin. With the change of antibiotics patient's nausea vomiting improved. Her H&H remained stable during hospitalization. patient's vital signs improved with IV fluids. IV fluids were able to be discontinued and she was put back on her blood pressure medications after a couple hypertensive episodes. Her labs and vital signs are stable and she is medically clear for discharge at this time. Time Spent with Patient Time attestation: Total time spent providing and/or coordinating discharge services: Exam Narrative: GENERAL: Comfortable, no acute distress HENMT: moist mucous membranes EYES: EOM intact b/l NECK: no lymphadenopathy RESPIRATORY: clear to auscultation, no increased respiratory effort CARDIO: Regular rate and rhythm GI: soft, no abdominal tenderness, bowel sounds present SKIN/EXTREMITIES: no rashes, no edema, no redness or tenderness NEURO: PROM intact, answers questions appropriately, A&O x4 DS: Data Data Completed and Pending Labs on day of discharge: Labs from last 24 hours 04/30/24 04/29/24 05:20 11:58 WBC 12.1 H RBC 3.21 L Hgb 10.1 L Hct 31.0 L MCV 96.6 MCH 31.5 MCHC 32.6 RDW 12.8 Plt Count 228 MPV 9.7 Sodium 134 L Potassium 3.8 4.3 Chloride 108 H Carbon Dioxide 22 Anion Gap 4 BUN 8 Creatinine
== END 2024-04-30 11:29 | disposition home or self-care (01) | DRG 312 ==
LOC: ANHED 18:10 → ANH3MED 18:22
PROVIDERS: Emergency Medicine; Internal Medicine Critical Care Medicine; Physician Assistant; Admitting Provider Internal Medicine; Emergency Provider Physician Assistant; Visit Provider Internal Medicine
DX: I95.1 Orthostatic hypotension (principal); K52.9 Noninfective gastroenteritis and colitis, unspecified; E86.0 Dehydration; E87.6 Hypokalemia; I10 Essential (primary) hypertension; R00.1 Bradycardia, unspecified; S00.93XA Contusion of unspecified part of head, initial encounter; K21.9 Gastro-esophageal reflux disease without esophagitis; E78.5 Hyperlipidemia, unspecified; Z98.42 Cataract extraction status, left eye; Z98.41 Cataract extraction status, right eye; Z90.710 Acquired absence of both cervix and uterus
CPT/HCPCS: 36415; 70450; 74177; 80048; 80053; 81001; 83605; 83690; 83735; 84132; 85025; 85027; 87045; 87086; 87427; 87449; 89055; 93005; 93306; 96361; 96365; 96375; 99285; A9270; G0378; J0696; J0780; J1836; J2405; J3480; J7030; J7040; J7120; Q9967

== ENCOUNTER 2025-01-28 09:47 | Outpatient (CLI) | payer MEDICARE, SELFPAY ==
--- NOTE | ~2025-01-28 | MM_ITS ---
EXAMINATION: MM screening bobbi BI w [facility] HISTORY: Screening TECHNIQUE: Craniocaudal and mediolateral oblique 3-D tomosynthesis images were obtained and synthetic 2-D images were generated. CAD analysis was submitted and interpreted. COMPARISON: Comparison to multiple prior studies sequentially, with oldest reviewed study dated 06/06. BREAST PARENCHYMAL COMPOSITION: Not dense: There are scattered areas of fibroglandular density. FINDINGS: There is no evidence of suspicious mass, calcification, or architectural distortion to sugg est malignancy in either breast. There has been no suspicious interval change. IMPRESSION: 1. No mammographic evidence of malignancy. 2. Recommend routine screening mammography in one year. BI-RADS Category 1: Negative Reviewed, dictated and finalized at location B.
--- OUTSIDE RECORDS SUMMARY | 2025-01-28 10:59 | XMS_ITS | Encounter Summary ---
Author Organization [facility] Healthcare Address [address] [place] [address] Care Team Providers Care Alumni Relations Manager Name Role Phone Nigel Saunders MD Primary Care Provider + Briana Rivera RN Unavailable [phone] Encounter Details Date Type Department Care Team (Late st Contact Info) Description 06/16/2020 Telephone [facility] - Imaging [address] [place] [address] Transcribed Order, Provider Social History Tobacco Use Types Packs/Day Years Used Date Smoking Tobacco: Never Smokeless Tobacco: Never Alcohol Use Standard Drinks/Week Comments Yes 1 (1 standard drink = 0.6 oz pur e alcohol) weekly AUDIT-C Answer Date Recorded Frequency of Alcohol Consumption 2-3 times a wee k 03/04/2019 Average Number of Drinks 1 or 2 019 Frequency of Binge Drinking Weekly 02/11 Overall Financial Resource Strain (CARDIA) Answe r Date Recorded How hard is it for you to pa y for the very basics like food, housing, medical care, and heating? Patient declined 06/18/2020 PHQ-2 Answer Date Recorded PHQ-2 Score 1 09/16/2019 Hunger Vital Sign Answer Date Recorded Within the past 12 months, y ou worried that your food would run out before you got the money to buy more. Patient declined Within the past 12 months, t he food you bought just didn't last and you didn't have money to get more. Patient declined 05/2020 PRAPARE - Transportation Answer Date Re corded In the past 12 months, has l ack of transportation kept you from medical appointments or from getting medications? No 05/2020 In the past 12 months, has l ack of transportation kept you from meetings, work, or from getting things needed for daily living? 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 06/10/2020 06/10/2020 06/24/2020 3:0 6 AM CDT documented as of this encounter Care Teams Alumni Relations Manager Relationship Specialty Start Date End Date Nigel Saunders MD [address] [facility] [address] [address] PCP - General 02/09/17 Briana Rivera, VON [address] [place] [address] [address] [place] [address] Graphic Art Sales Representative 06/18/20 07/19/20 documented as of this encounter
--- OUTSIDE RECORDS SUMMARY | 2025-01-28 10:59 | XMS_ITS | Encounter Summary ---
Author Organization [facility] Healthcare Address [address] [place] [address] Care Team Providers Care Metal Annealer Name Role Phone Nigel Saunders MD Primary Care Provider + Reason for Visit * Reason Onset Date Comments Medical Question/Miscellaneous 01/26/2025 Encounter Details Date Type Department Care Team (Late st Contact Info) Description 01/26/2025 Telephone [facility] Medical Group Primary Care at [facility] [address] [facility] [address] [place] [id number] Nigel Saunders MD [address] [place] [id number] Medical Question/Miscellaneous Social History Tobacco Use Types Packs/Day Years Used Date Smoking Tobacco: Never Smokeless Tobacco: Never Alcohol Use Standard Drinks/Week Comments Not Currently 0 (1 standard drink = 0.6 oz pur e alcohol) AUDIT-C Answer Date Recorded Q1: How often do you have a drink containing alc ohol? 2-3 times a week 06/25/2023 Q2: How many drinks containi ng alcohol do you have on a typical day when you are drinking? 1 or 2 06/25/2023 Q3: How often do you have si x or more drinks on one occasion? Weekly 06/25/2023 Overall Financial Resource Strain (CARDIA) Answe r Date Recorded How hard is it for you to pa y for the very basics like food, housing, medical care, and heating? 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 states the patient is scheduled tomorrow @ 9am and they still haven't received the order. CS advised it was suppose to have came over yesterday according to [facility] Cm. Please follow up to resend f:[phone] Does message need to be routed? Yes-Action Needed * Telephone Encounter - Soila Peguero MA - 01/26/2025 1:21 PM CDT Faxing over order * Telephone Encounter - Deepali Jensen - 01/26/2025 1:06 PM CDT Medical Question/Miscellaneous Caller???s Concern: [facility] pre arrival calling to get the mammogram screening order faxed to them. The patient appointment is tomorrow morning. Does message need to be routed? Yes-Action Needed documented in this encounter Plan of Treatment Not on file documented as of this encounter Visit Diagnoses Not on filedocumented in this encounter Care Teams Metal Annealer Relationship Specialty Start Date End Date Nigel Saunders MD [address] [address] PCP - General 02/09/17 documented as of this encounter
--- OUTSIDE RECORDS SUMMARY | 2025-01-28 10:59 | XMS_ITS | Encounter Summary ---
Author Organization [facility] Care Team Providers Care Radiology Specialist Name Role Phone Nigel Saunders MD Primary Care Provider + Briana Rivera RN Unavailable [phone] Encounter Details Date Type Department Care Team (Latest Contact Info) Description 08/07/2017 Orders Only [facility] ProviderElana MD [address] [place] [id number] Social History Tobacco Use Types Packs/Day Years Used Date Smoking Tobacco: Never Alcohol Use Standard Drinks/Week Comments Yes 0 (1 standard drink = 0.6 oz pur e alcohol) Comments Unknown Sex and Gender Information Value Date Recorded Sex Assigned at Not on file 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 us Historical Provider Final Res ult documented in this encounter Visit Diagnoses Not on filedocumented in this encounter Additional Health Concerns Infection Onset Date Last Indicated Resolved Time COVID: Suspected 05/24/2020 05/24/2020 05/26/2020 12:02 PM CDT Respiratory Infection (KALYN), contact + droplet Comment:Automatically added due to negative COVID-19 result. 05/26/2020 05/26/2020 06/09/2020 3:0 6 AM CDT COVID: Suspected 06/10/2020 06/10/2020 06/10/2020 8:12 PM CDT Respiratory Infection (KALYN), contact + droplet Comment:Automatically added due to negative COVID-19 result. 06/10/2020 06/10/2020 06/24/2020 3:0 6 AM CDT documented as of this encounter Care Teams Radiology Specialist Relationship Specialty Start Date End Date Nigel Saunders MD [address] [facility] [address], [place] [address] PCP - General 02/09/17 Briana Rivera RN [address] [place] [address] [address] [place] [address] Aws Architect 06/18/20 07/19/20 documented as of this encounter
--- OUTSIDE RECORDS SUMMARY | 2025-01-28 10:59 | XMS_ITS | Referral Summary ---
Author Organization [facility] Address [address] [place] [address] Care Team Providers Care Control Room Tender Name Role Phone Nigel Saunders MD Primary Care Provider + Encounters Date Type Department Care Team Description 01/26/2025 Telephone [facility] Primary Care at [place] [id number] [facility] [address] [place] [phone] Nigel Saunders MD Medical Question/Miscellaneo us 01/15/2025 Telephone [facility] Primary Care at [facility] [address] [facility] [address] [place] [phone] Nigel Saunders MD Hypertension 01/08/2025 Telephone [facility] Primary Care at [facility] [address] [facility] [address] [place] [phone] Nigel Saunders MD 01/08/2025 1:46 PM STEWARDESS SUPERVISOR - 01/08/2025 11:59 PM STEWARDESS SUPERVISOR Hospital Encounter [address] [address] Pulmonary eosinophilia (Primary Dx) Discharge Disposition: Discharge to home or self care 12/17/2024 Telephone [facility] Primary Care at [address] [place] [phone] Nigel Saunders MD Hypertension 11/13/2024 10:19 AM STEWARDESS SUPERVISOR - 11/13/2024 11:59 PM STEWARDESS SUPERVISOR Hospital Encounter [address] [address] Pulmonary eosinophilia (Primary Dx) Discharge Disposition: Discharge to home or self care 11/10/2024 Orders Only [address] [address] Rajni Bustamante RN from Last 3 Months Allergies Active Allergy Reactions Criticality Noted Date Comments Albuterol Dizziness Low 06/27/2018 Dizziness/Light Headed Penicillins Rash,Blisters High At 7 years old Medications sertraline (ZOLOFT) 50 mg tablet Take 1 tablet (50 mg total) by mouth nightly 2 8 Active multivitamin tabletIndication s:Vitamin Deficiency Prevention Take 1 tablet by mouth daily Active traZODone (DESYREL) 100 mg tablet Take 1 tablet (100 mg total) by mouth nightly as needed Active zolpidem CR (AMBIEN CR) 12.5 mg CR tablet TK 1 T PO QD HS 0 Active ondansetron (ZOFRAN) 4 mg tablet Take 1 tablet (4 mg total) by mouth every 8 (eight) hours as needed for nausea 20 tablet 4 Active omeprazole (PriLOSEC) 20 mg capsule TAKE 1 CAPSULE(20 MG) BY MOUTH DAILY 100 capsule 3 4 Active benralizumab (Fasenra) 30 mg/mL syringe Inject 1 mL (30 mg total) under the skin every 8 (eight) weeks Active amLODIPine (NORVASC) 10 mg tablet TAKE 1 TABLET(10 MG) BY MOUTH EVERY NIGHT 90 tablet 3 4 Active labetaloL (NORMODYNE,TRAND ATE) 300 mg tablet TAKE 1 TABLET(300 MG) BY MOUTH TWICE DAILY 180 tablet 3 4 Active betamethasone dipropionate (DIPROSONE) 0.05 % ointment Apply topically 2 (two) times a day as needed for irritation or rash 135 g 4 4 Active cloNIDine (CATAPRES) 0.1 mg tablet Take 1 tablet (0.1 mg total) by mouth 2 (two) times a day 180 tablet 3 4 025 Active lisinopriL (PRINIVIL,ZESTRI L) 40 mg tablet TAKE 1 TABLET(40 MG) BY MOUTH EVERY NIGHT 100 tablet 1 5 Active PHENobarbitaL 16.2 mg tablet TAKE 3 TABLETS(48.6 MG) BY MOUTH TWICE DAILY 180 tablet 5 5 Active atorvastatin (LIPITOR) 20 mg tablet TAKE 1 TABLET BY MOUTH EVERY DAY 100 tablet 3 5 Active estradioL (CLIMARA) 0.05 mg/24 hr Apply 1 Patch topically once a week 14 patch 1 5 Active estradioL (CLIMARA) 0.05 mg/24 hr APPLY 1 PATCH TOPICALLY ONCE A WEEK 14 patch 1 4 025 Discontin ued(Reord er) Active Problems Problem Noted Date Diagnosed Date Psychophysiological insomnia 08/21/2024 Hyperinflation of lungs 06/25/2023 Non-smoker 05/19/2021 Deviated nasal septum 07/09/2020 Overview (07/09/2020): Added automatically from request for surgery [id number] Mild malnutrition 06/12/2020 Chronic pansinusitis 06/12/2020 Hyponatremia 06/11/2020 BMI 28.0-28.9,adult 05/02/2019 Multiple pulmonary nodules 03/04/2019 Pulmonary eosinophilia 09/12/2018 Chronic obstructive pulmonary disease 05/28/2018 Elevated IgE level 11/01/2017 Low serum IgG for age 0908/09/2017 Eosinophilia 08/09/2017 Essential hypertension 09/09/2015 Overview (02/15/2017): Essential hypertension Depression 09/09/2015 Overview (02/15/2017): Depression Enthesopathy of hip region 05/24/2015 Trochanteric bursitis 05/24/2015 CKD (chronic kidney disease) stage 3, GFR 30-59 ml/min 12/04/2014 Overview (03/16/2021): Based on GFR's Family history of colon cancer 02/24/2013 Primary localized osteoarthrosis of shoulder reg ion 02/29/2012 Overview (05/10/2017): Overview: Adhesive capsulitis of shoulder 02/07/2012 Benign hypertensive kidney d isease without chronic kidney disease 12/16/2009 Endometriosis 12/16/2009 Migraine headache 12/16/2009 Pure hypercholesterolemia 12/16/2009 Seizure disorder 12/16/2009 Resolved Problems Problem Noted Date Diagnosed Date Resolved Date Chronic rhinitis 07/09/2020 02/08/2024 Overview (07/09/2020): Added automatically from request for surgery [id number] Cough 06/11/2020 06/17/2020 Eosinophilia 05/10/2017 05/19/2021 Immunizations Immunization Administration Dates Next Due COVID-19 MRNA (MODERNA) .5 M L (50 MCG) VACCINE (12 YEARS AND UP) 08/07/2023 Influenza, Quad, Adjuvantate d, Intramuscular 08/07/2023 Influenza, Quadrivalent, Hig h Dose, Preservative Free, Intrr 08/10/2022,08/11/2020 Influenza, Trivalent, High D ose, Split, Preservative Free, Intramuscular 07/16/2024,09/16/2019,09/14/2016,08/07,09/01/2015 Influenza, Unspecified 08/12/2021,07/15/2018,08/2017 Moderna SARS-CoV-2 Monovalen t Vaccination (12+ YRS) 02/12/2021,01/25/2021,01/12/2021 Moderna Sars-cov-2 Bivalent Vaccine 50 Mcg/0.5 mL (12+ YRS)-Blue/[place] 08/10/2022 Pneumococcal Conjugate PCV 13 09/09/2015 Pneumococcal Polysaccharide PPV23 01/11/2020,,12/22/2011 RSV Vaccine, Pref, Recombina nt, Subunit, Adjuvanted, PF, IM (Arexvy) 07/05/2024 Tdap 08/13/2021 ZOSTER Recombinant 11/30/2022,02/15/2022 Social History Tobacco Use Types Packs/Day Years Used Date Smoking Tobacco: Never Smokeless Tobacco: Never Tobacco Cessation:Counseling Given: Not Answered Alcohol Use Standard Drinks/Week Comments Not Currently [...] on file Legal Sex Female 2:01 AM STEWARDESS SUPERVISOR Gender Identity Female 03/18/2021 10:47 AM CDT Sexual Orientation Not on file Occupation Industry Job Start Date Job End Date retired Not on file Not on file Not on file Last Filed Vital Signs Vital Sign Reading Time Taken Comments Blood Pressure 141/71 01/08/2025 2:00 PM STEWARDESS SUPERVISOR Pulse 57 01/08/2025 2:00 PM STEWARDESS SUPERVISOR Temperature 36.3 C (97.4 F) 01/08/2025 2:00 PM STEWARDESS SUPERVISOR Respiratory Rate 14 01/08/2025 2:00 PM STEWARDESS SUPERVISOR Oxygen Saturation 100% 01/08/2025 2:00 PM STEWARDESS SUPERVISOR Inhaled Oxygen Concentration - - Weight 60.2 kg (132 lb 12.8 oz) 025 10:25 AM STEWARDESS SUPERVISOR Height 149.9 cm (4' 11.02 ) 10/20/2024 3:41 PM Hilario Body Mass Index 26.81 10/20/2024 3:41 PM STEWARDESS SUPERVISOR Plan of Treatment Not on file Medical Devices Implanted Type Area Automation Qa Lead Device Identifier Shelf Expiration Date Model / Serial / Lot Implantech Alliedsil 3x2in 1 Short Term Implantable Thk.03in Sheeting - [id number] Implanted:Qty: 1 on 07/21/2020 by Bowen Johnson MD at [facility] Nose Implantech [id number] 08/26/2024 / / [id number] Intersect Ent [id number] Propel Contour Implant Nasal Sterile Latex Free - [id number] Implanted:Qty: 1 on 07/21/2020 by Bowen Johnson MD at [facility] Nose Intersect Ent 08/01/2021 [id number] / / [id number] Intersect Ent 37463 Propel 4mm 16mm Steroid Release Zip Tie 370 Mcg Mini Implant - [id number] Implanted:Qty: 1 on 07/21/2020 by Bowen Johnson MD at [facility] Nose Intersect Ent 04/01/2021 [id number] / / [id number] Intersect Ent 51178 Propel 4mm 16mm Steroid Release Zip Tie 370 Mcg Mini Implant - [id number] Implanted:Qty: 1 on 07/21/2020 by Bowen Johnson MD at [facility] Nose Intersect Ent 04/01/2021 [id number] / / [id number] Intersect Ent 58467 Propel Contour Implant Nasal Sterile Latex Free - [id number] Implanted:Qty: 1 on 07/21/2020 by Bowen Johnson MD at [facility] Nose Intersect Ent 08/01/2021 [id number] / / [id number] Procedures Procedure Name Priority Date/Time Associated Diagnosis Comments SCREENING MAMMOGRAM 2D BILATERAL Schedule Routine, Read Routine (OP Routine) 06/21/2023 DEXA AXIAL SKELETON BONE DENSITY 1 OR MORE SITES Schedule Routine, Read Routine (OP Routine) 01/20/2021 HEPATITIS C ANTIBODY Routine 09/12/2018 2:50 PM CDT Encounter for hepatitis C screening test for low risk patient COLONOSCOPY Routine 07/18/2018 from Last 3 Months or Most Recently Relevant to Health Maintenance Results * Screening Mammogram 2D Bilateral (06/21/2023) Anatomical Region Laterality Modality Breast Bilateral Mammography Historical Provider IMG MAMMO PROCEDURES Kailyn l Result * Dexa Axial Skeleton Bone Density 1 or 2 Site (01/20/2021) SCRIBED DXA T-SCORE -1.4 SCRIBED DXA Z-SCORE 0.7 SCRIBED DXA BMD 0.699 Anatomical Region Laterality Modality Body N/A Radiographic Sheree ging Historical Provider IMG DXA PROCEDURES Final Result * Hepatitis C antibody (09/12/2018 2:50 PM CDT) Pathologist [facility] Hep C Ab Non-Reactiv e Non-Reactiv e [facility] Blood specimen (specimen) 09/12/2018 2:50 PM CDT 09/12/2018 6:[address] [facility] - 09/12/2018 7:31 PM CDT Nigel Saunders MD LAB MICROBIOLOGY - GENER AL ORDERABLES Final Result [facility] [address] Department [place] [address] * COLONOSCOPY (07/18/2018) Colonoscopy Normal Historical Provider HEALTH MAINTENANCE Final Result from Last 3 Months or Most Recently Relevant to Health Maintenance Insurance [facility] MEDICARE [facility] MEDICARE MEDICARE [facility] Advance Directives For more information, please contact: [phone] Documents on File Type Date Recorded Patient Circle Edger Expl anation Power of Principal Statistical Scientist 10/03/2021 10:03 AM * Full Code (Latest Code Status on File) Date Activated Date Inactivated Comments 07/21/2020 11:18 AM 07/21/2020 7:26 PM * Full Code Date Activated Date Inactivated Comments 06/10/2020 9:04 PM 06/17/2020 3:50 PM Care Teams Control Room Tender Relationship Specialty Start Date End Date Nigel Saunders MD [address] [address] PCP - General 02/09/17
--- OUTSIDE RECORDS SUMMARY | 2025-01-28 10:59 | XMS_ITS | Encounter Summary ---
Author Organization [facility] Care Team Providers Care Airset Molder Name Role Phone Nigel Saunders MD Primary Care Provider + Briana Rivera RN Unavailable [phone] Encounter Details Date Type Department Care Team (Latest Contact Info) Description 06/25/2018 Orders Only [facility]INCON[facility] ProviderElana MD [address] [place] [id number] Social History Tobacco Use Types Packs/Day Years Used Date Smoking Tobacco: Never Smokeless Tobacco: Never Alcohol Use Standard Drinks/Week Comments Yes 0 (1 standard drink = 0.6 oz pur e alcohol) Comments Unknown Sex and Gender Information Value Date Recorded Sex Assigned at Not on file Legal Sex Female 2:01 AM TECHNOLOGY EDUCATION TEACHER Gender Identity Female 03/18/2021 10:47 AM CDT Sexual Orientation Not on file documented as of this encounter Plan of Treatment Not on file documented as of this encounter Procedures Procedure Name Priority Date/Time Associated Diagnosis Comments PROCEDURE - RESULT 06/27/2018 12 :00 AM CDT documented in this encounter Results * PROCEDURE - RESULT (06/27/2018 12:00 AM CDT) Narrative 06/27/2018 12:00 AM CDT Ordered by an unspecified [...] documented as of this encounter Care Teams Airset Molder Relationship Specialty Start Date End Date Nigel Saunders MD [address] [facility] [address] [address] PCP - General 02/09/17 Briana Rivera RN [address] [place] [address] [address] [place] [address] Boiler Fitter 06/18/20 07/19/20 documented as of this encounter
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
--- OUTSIDE RECORDS SUMMARY | 2025-01-28 10:59 | XMS_ITS | Encounter Summary ---
Author Organization [facility] Healthcare Address [address] [place] [address] Care Team Providers Care Yield Improvement Engineer Name Role Phone Nigel Saunders MD Primary Care Provider + Encounter Details Date Type Department Care Team (Late st Contact Info) Description 03/24/2021 Telephone [facility] - Imaging [address] [place] [address] Transcribed Order, Provider Social History Tobacco Use Types Packs/Day Years Used Date Smoking Tobacco: Never Smokeless Tobacco: Never Alcohol Use Standard Drinks/Week Comments Not Currently 0 (1 standard drink = 0.6 oz pur e alcohol) AUDIT-C Answer Date Recorded Frequency of Alcohol [...] PHQ-2 Answer Date Recorded PHQ-2 Total Score 2 12/22/2020 Hunger Vital Sign Answer Date Recorded Within [...] on file Legal Sex Female 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
--- OUTSIDE RECORDS SUMMARY | 2025-01-28 10:59 | XMS_ITS | Clinical Summary ---
Author Organization [facility] Address [address] [place] [address] Care Team Providers Care Academic Affairs Dean Name Role Phone Nigel Saunders MD Primary Care Provider + Allergies Active Allergy Reactions Criticality Noted Date [...] (07/09/2020): Added automatically from request for surgery [id number] Mild malnutrition 06/12/2020 Chronic pansinusitis 06/12/2020 Hyponatremia [...] (07/09/2020): Added automatically from request for surgery [id number] Cough 06/11/2020 06/17/2020 Eosinophilia 05/10/2017 05/19/2021 Encounters Date Type Department Care Team Description 01/26/2025 Telephone [facility] Primary Care at [address] [address] Nigel Saunders MD Medical Question/Miscellaneo us 01/15/2025 Telephone [facility] Primary Care at [address] [address] Nigel Saunders MD Hypertension 01/08/2025 1:46 PM DIRECTOR OF SAFETY - 01/08/2025 11:59 PM DIRECTOR OF SAFETY Hospital Encounter [address] [address] Pulmonary eosinophilia (Primary Dx) Discharge Disposition: Discharge to home or self care 01/08/2025 Telephone [facility] Primary Care at [address] [address] Nigel Saunders MD 12/17/2024 Telephone [facility] Primary Care at [facility] [address] [facility] [address], [place] [address] Nigel Saunders MD Hypertension 11/13/2024 10:19 AM DIRECTOR OF SAFETY - 11/13/2024 11:59 PM DIRECTOR OF SAFETY Hospital Encounter [address] [address] Pulmonary eosinophilia (Primary Dx) Discharge Disposition: Discharge to home or self care 11/10/2024 Orders Only [address] [address] Rajni Bustamante RN from Last 3 Months Immunizations Immunization Administration Dates Next Due COVID-19 [...] (Arexvy) 07/05/2024 Tdap 08/13/2021 ZOSTER Recombinant 11/30/2022,02/15/2022 Surgical History Surgery Date Site/Laterality Comments TONSILLECTOMY TOTAL ABDOMINAL HYSTERECTOMY CLOSED MANIPULATION SHOULDER 11/12/2011 - 11/11/2012 Lef t SINUS SURGERY CATARACT EXTRACTION Medical History Medical History Date Comments Depression Hypertension Chronic eosinophilic pneumonia (HCC) Chronic sinusitis Dyslipidemia History of GI bleed 2016 ASA use (no transfusions) COPD, 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 - NO TREATMENT Seizure, [place] (HCC) only on e about 30 years ago, remains on medication GERD (gastroesophageal reflux disease) Cancer (HCC) Anxiety Family History Medical History Relation Name Comments COPD Father Grady Cancer Mother Lorrie Coronary artery disease Mother Lorrie Heart attack Mother Lorrie Lung cancer Mother Lorrie Stroke Mother Lorrie Colon cancer Sister Relation Name Status Comments Father Grady Mother Lorrie Sister Alive Social History Tobacco Use Types Packs/Day Years [...] on file Legal Sex Female 2:01 AM DIRECTOR OF SAFETY Gender Identity Female 03/18/2021 10:47 AM CDT Sexual Orientation Not on file Occupation Industry Job Start Date Job End Date retired Not on file Not on file Not on file Obstetrics History Last Filed Vital Signs Vital Sign Reading Time Taken Comments Blood Pressure 141/71 01/08/2025 2:00 PM DIRECTOR OF SAFETY Pulse 57 01/08/2025 2:00 PM DIRECTOR OF SAFETY Temperature 36.3 C (97.4 F) 01/08/2025 2:00 PM DIRECTOR OF SAFETY Respiratory Rate 14 01/08/2025 2:00 PM DIRECTOR OF SAFETY Oxygen Saturation 100% 01/08/2025 2:00 PM DIRECTOR OF SAFETY Inhaled Oxygen Concentration - - Weight 60.2 kg (132 lb 12.8 oz) 025 10:25 AM DIRECTOR OF SAFETY Height 149.9 cm (4' 11.02 ) 10/20/2024 3:[address] Body Mass Index 26.81 10/20/2024 3:41 PM DIRECTOR OF SAFETY Plan of Treatment Health Maintenance Due Date Last Done Comments Osteoporosis Screening-Bone Density Scan 01/20/2023 01/20/2021, 03/18/2014 Covid-19 Vaccine ( season) 2025 07/16/2024, 08/07/2023, 08/10/2022, Additional history exists Depression Screening 02/07/2025 02/08/2024, 02/07/2023, 08/10/2022, Additional history exists Fall Risk Assessment 02/07/2025 02/08/2024, 10/08/2023, 02/07/2023, Additional history exists Well Visit 65+ 02/07/2025 02/08/2024, 01/11, 02/07/2022, Additional history exists DTaP/Tdap/Td Vaccine (2 - Td or Tdap) 08/13/2031 08/13/2021 Colon Cancer Screening-CT Colonography Discontinued 07/18/2018, 04/23/2013 Colon Cancer Screening-Colonoscopy Discontinued 07/18/2018, 04/23/2013 Colon Cancer Screening-DNA Stool Discontinued 07/18/20 18, 04/23/2013 Colon Cancer Screening-FIT Discontinued 07/18/2018, Colon Cancer Screening-FOBT Discontinued 07/18/2018, 0 04/23/2013 Colon Cancer Screening-Sigmoidoscopy Discontinued 07/18/2018, 04/23/2013 Colorectal Cancer Screening Discontinued Hepatitis C Screening Completed 09/12/2018 Pneumococcal vaccine 65+ Completed 020, 09/11/2017, 09/09/2015, Additional history exists Zoster Vaccine Completed 11/30/2022, 02/15/2022 Breast Cancer Screening-Mammogram Discontinued 06/21/2023, 03/23/2022, 01/21/2021, Additional history exists Hepatitis B Screening Completed 02/08/2024 Influenza Vaccine Completed 07/16/2024, , 08/10/2022, Additional history exists Medical Devices Implanted Type Area Cheese Processor Device Identifier Shelf Expiration Date Model / Serial / Lot Implantech -700-30 Alliedsil 3x2in 1 Short Term Implantable Thk.03in Sheeting - [id number] Implanted:Qty: 1 on 07/21/2020 by Bowen Johnson MD at [facility] Nose Implantech [id number] 08/26/2024-30 / / [id number] Intersect Ent 62924 Propel Contour Implant Nasal Sterile Latex Free - [id number] Implanted:Qty: 1 on 07/21/2020 by Bowen Johnson MD at [facility] Nose Intersect Ent 08/01/2021 [id number] / / [id number] Intersect Ent 32440 Propel 4mm 16mm Steroid Release Zip Tie 370 Mcg Mini Implant - [id number] Implanted:Qty: 1 on 07/21/2020 by Bowen Johnson MD at [facility] Nose Intersect Ent 04/01/2021 [id number] / / [id number] Intersect Ent 32892 Propel 4mm 16mm Steroid Release Zip Tie 370 Mcg Mini Implant - [id number] Implanted:Qty: 1 on 07/21/2020 by Bowen Johnson MD at [facility] Nose Intersect Ent 04/01/2021 [id number] / / [id number] Intersect Ent 79812 Propel Contour Implant Nasal Sterile Latex Free - [id number] Implanted:Qty: 1 on 07/21/2020 by Bowen Johnson MD at [facility] Nose Intersect Ent 08/01/2021 [id number] / / [id number] Procedures Procedure Name Priority Date/Time Associated Diagnosis Comments SCREENING MAMMOGRAM 2D BILATERAL Schedule Routine, Read Routine (OP Routine) 06/21/2023 DEXA AXIAL SKELETON BONE DENSITY 1 OR MORE SITES Schedule Routine, Read Routine (OP Routine) 01/20/2021 HEPATITIS C ANTIBODY Routine 09/12/2018 2:50 PM CDT Encounter for hepatitis C screening test for low risk patient HM COLONOSCOPY Routine 07/18/2018 from Last 3 Months or Most Recently Relevant to Health Maintenance Results * Screening Mammogram 2D Bilateral (06/21/2023) Anatomical Region Laterality Modality Breast Bilateral Mammography Historical Provider MD [facility] MAMMO PROCEDURES Kailyn l Result * Dexa Axial Skeleton Bone Density 1 or 2 Site (01/20/2021) Pathologist [facility] SCRIBED DXA T-SCORE -1.4 SCRIBED DXA Z-SCORE 0.7 SCRIBED DXA BMD 0.699 Anatomical Region Laterality Modality Body N/A Radiographic Sheree ging Historical Provider MD [facility] DXA PROCEDURES Final Result * Hepatitis C antibody (09/12/2018 2:50 PM CDT) Pathologist [facility] Hep C Ab Non-Reactiv e Non-Reactiv e [facility] Blood specimen (specimen) 09/12/2018 2:50 PM CDT 09/12/2018 6:16 PM CDT [facility]ative [facility] - 09/12/2018 7:31 PM CDT Nigel Saunders MD LAB MICROBIOLOGY - GENER AL ORDERABLES Final Result [facility] [address] [place] [address] * COLONOSCOPY (07/18/2018) Colonoscopy Normal us Historical Provider MD HEALTH MAINTENANCE Final Result from Last 3 Months or Most Recently Relevant to Health Maintenance Insurance [facility] [place] [address] [facility] MEDICARE MEDICARE [facility] Advance Directives For more information, please contact: [phone] Documents on File Type Date Recorded Patient Pt Skilled Expl anation Power of Budget Engineer 10/03/2021 10:03 AM * Full Code (Latest Code Status on File) Date Activated Date Inactivated Comments 07/21/2020 11:18 AM 07/21/2020 7:26 PM * Full Code Date Activated Date Inactivated Comments 06/10/2020 9:04 PM 06/17/2020 3:50 PM Care Teams Academic Affairs Dean Relationship Specialty Start Date End Date Nigel Saunders MD [address] [address] [facility] - General 02/09/17
--- OUTSIDE RECORDS SUMMARY | 2025-01-28 10:59 | XMS_ITS | Clinical Summary ---
Author Organization [facility] Address [facility] [place] [address] Care Team Providers Care Office Machines Wirer Name Role Phone Unavailable Primary Care Provider Unavailabl e Social History Tobacco Use Types Packs/Day Years Used Date Smoking Tobacco: Never Assessed Comments Unknown Sex and Gender Information Value Date Recorded Sex Assigned at Not on file Legal Sex Female 5:32 PM CDT Gender Identity Not on file Sexual Orientation Not on file Plan of Treatment Health Maintenance Due Date Last Done Comments Hepatitis C 1963 DTaP, Tdap and Td Vaccines ( 1 - Tdap) 1965 Zoster Vaccines (1 of 2) 1996 Dexa Scan (General) 2011 Pneumococcal Vaccine: 65+ Ye ars (1 of 1 - PCV) 2011 RSV Immunization or 60+ Years (1 - 1-dose 75+ series) 2021 COVID-19 Vaccine (2023-2 5 season) 2024 Influenza Adult (#1) 2024 Meningococcal B Vaccine Aged Out No l onger eligible based on patient's age to complete this topic Meningococcal Vaccine Aged Out No sonja rosalind eligible based on patient's age to complete this topic RSV Immunizations Under 20 Months Aged Out No longer eligible based on patient's age to complete this topic
--- OUTSIDE RECORDS SUMMARY | 2025-01-28 10:59 | XMS_ITS | Encounter Summary ---
Author Organization [facility] Facility Care Team Providers Care Full Stack Php Developer Name Role Phone Nigel Saunders MD Primary Care Provider + Briana Rivera RN Unavailable [phone] Encounter Details Date Type Department Care Team (Latest Contact Info) Description 07/01/2018 Orders Only [facility] ProviderElana MD [address] [place] [address] Social History Tobacco Use Types Packs/Day Years Used Date Smoking Tobacco: Never Smokeless Tobacco: Never Alcohol Use Standard Drinks/Week Comments Yes 0 (1 standard drink = 0.6 oz pur e alcohol) Comments Unknown Sex and Gender Information Value Date Recorded Sex Assigned at Not on file Legal Sex Female 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 Gender Identity Female 03/18/2021 10:47 AM CDT Sexual Orientation Not on file documented as of this encounter Plan of Treatment Not on file documented as of this encounter Procedures Procedure Name Priority Date/Time Associated Diagnosis Comments SCAN - LABS 07/01/2018 12:00 AM CDT documented in this encounter Results * SCAN - LABS (07/01/2018 12:00 AM CDT) Narrative 07/01/2018 12:00 AM CDT Ordered by an unspecified [...] documented as of this encounter Care Teams Full Stack Php Developer Relationship Specialty Start Date End Date Nigel Saunders MD [address] [facility] [address], [place] [address] PCP - General 02/09/17 Briana Rivera RN [address] [place] [address] [address] [place] [address] Commissions Coordinator 06/18/20 07/19/20 documented as of this encounter
--- OUTSIDE RECORDS SUMMARY | 2025-01-28 10:59 | XMS_ITS | Clinical Summary ---
Author Organization [facility] Address [address] [place] [address] Care Team Providers Care Car Usher Name Role Phone Lorenzo Magallanes MD Unavailable [phone] Source Comments [facility],non-owned Affiliates and Associated Physician Practices is amultiple site organization consisting of ambulatory clinics and hospital sitesin [place], [place], [place]. This disclosure is being madepursuant to the Care Everywhere program and may not contain all information available regarding this patient. Last updated 18.[facility] Allergies Active Allergy Reactions Criticality Noted Date Comments Penicillins 12/16/2009 At 7 years old/ strong family history PCN allergy (Father and uncle) Medications * Be aware that medications may not be up to date on this document. Alwaysverify current medications with the patient. Medication Sig Dispensed Refills Start Date End Date Status Salicylic Acid 3 % OINT by Apply externally route. Active vilazodone (VIIBRYD) 40 MG tablet Take 40 mg by mouth daily with breakfast. Active zolpidem CR (AMBIEN CR) 12.5 MG tabletIndications:In somnia Take 12.5 mg by mouth nightly as needed. Indications: Trouble Sleeping Active clonazePAM (KLONOPIN) 0.5 MG tablet Take 0.5 mg by mouth 2 times daily. Active vitamin D, cholecalciferol, 1000 UNIT tablet Take 1,000 Units by mouth once daily. Active multivitamin daily (THERAGRAN) tablet Take 1 Tab by mouth daily with food. Active estradiol (CLIMARA) 0.05 MG/24HR patch APPLY ONE PATCH TOPICALLY ONCE A WEEK(EVERY 7 DAYS) 12 Patch 3 07/14/2014 Active triamterene-hydrochl orothiazide (MAXZIDE) 75-50 MG tabletIndications:Es sential hypertension, benign Take 1 Tab by mouth once daily. 90 Tab 3 08/06/2014 Active lisinopril (PRINIVIL; ZESTRIL) 20 MG tablet TAKE 1 TABLET BY MOUTH ONCE DAILY 90 Tab 1 10/29/2014 Active PHENobarbital (LUMINAL) 16.2 MG tablet TAKE 3 TABLETS TWICE DAILY 540 Tab 3 11/23/2014 Active atenolol (TENORMIN) 50 MG tabletIndications:Es sential hypertension, benign Take 1 Tab by mouth once daily. 90 Tab 3 12/07/2014 Active traZODone (DESYREL) 100 MG tablet TAKE 1 TABLET BY MOUTH EVERY NIGHT AT BEDTIME 90 Tab 1 01/25/2015 Active desoximetasone (TOPICORT) 0.25 % cream APPLY TO THE AFFECTED AREA TWICE DAILY 60 g 0 02/17/2015 Active benzonatate (TESSALON) 100 MG capsule Take 1 Cap by mouth 3 times daily as needed for Cough 20 Cap 09/21/2016 Active Active Problems Problem Noted Date Diagnosed Date CKD (chronic kidney disease) stage 3, GFR 30-59 ml/min 12/04/2014 Overview (12/04/2014): Based on GFR's Family history of colon cancer 02/24/2013 Primary localized osteoarthrosis of shoulder reg ion 02/29/2012 Overview (08/12/2015): Benign hypertensive kidney d isease with chronic kidney disease stage I through stage IV, or unspecified(403.10) 12/16/2009 Pure hypercholesterolemia 12/16/2009 Depression 12/16/2009 S/P tonsillectomy 12/16/2009 Endometriosis 12/16/2009 Seizure disorder 12/16/2009 Migraine 12/16/2009 Screening for condition 12/16/2009 Overview (08/12/2015): Immunizations Name Administration Dates Next Due INFLUENZA VACCINE, TRIV. (AF LURIA, FLUZONE TRIVALENT; 6MO+) (IIV3) 10/21/2012 INFLUENZA VACCINE 09/26/2014,07/13/2013 PNEUMOCOCCAL PPSV23 12/22/2011 Family History Medical History Relation Name Comments Stroke Father CAD (Coronary Artery Disease) Mother Cancer Mother liver, lung Stroke Mother Cancer Sister 2 colon Relation Name Status Comments Father Mother Sister 1 Alive Sister 2 Social History Tobacco Use Types Packs/Day Years Used Date Smoking Tobacco: Never Smokeless Tobacco: Never Alcohol Use Standard Drinks/Week Comments Yes 0.8 (1 standard drink = 0.6 oz p ure alcohol) Sex and Gender Information Value Date Recorded Sex Assigned at Not on file Gender Identity Not on file Sexual Orientation Not on file Last Filed Vital Signs Vital Sign Reading Time Taken Comments Blood Pressure 122/78 09/21/2016 5:44 PM SHEET CATCHER Pulse 76 09/21/2016 5:44 PM SHEET CATCHER Temperature 36.7 C (98 F) 09/21/2016 5:44 PM SHEET CATCHER Respiratory Rate 16 09/21/2016 5:44 PM SHEET CATCHER Oxygen Saturation 98% 12/15/2014 10:15 AM SHEET CATCHER Inhaled Oxygen Concentration - - Weight 58.1 kg (128 lb) 09/21/2016 5:44 PM SHEET CATCHER Height 149.9 cm (4' 11 ) 04/10/2015 11:17 AM CDT Body Mass Index 25.85 04/10/2015 11:17 AM CDT Plan of Treatment Health Maintenance Due Date Last Done Comments MEDICARE AWV 12 MONTHS 1945 HEPATITIS C SCREENING 06/10/1964 DTAP/TDAP/TD VACCINES (1 - Tdap) 1965 ZOSTER VACCINE (1 of 2) 1996 PNEUMOCOCCAL VACCINE 50+ (2 of 2 - PCV) 12/22/2012 12/22/2011 Respiratory Syncytial Virus (RSV) Vaccine Pt: or over 60 yrs (1 - 1-dose 75+ series) 2021 COVID-19 VACCINE ( - 2023-2 5 season) 2024 INFLUENZA VACCINE (#1) 2024 4, 07/13/2013, 10/21/2012 DEPRESSION SCREENING 11/12/2024 BONE DENSITY TESTING Completed 03/18/2014, 03/18/2014 HEPATITIS B VACCINE Aged Out No longe r eligible based on patient's age to complete this topic HIB VACCINE Aged Out No longer eligi ble based on patient's age to complete this topic HPV VACCINE Aged Out No longer eligi ble based on patient's age to complete this topic MENINGOCOCCAL (Group B) VACCINE SHARED DECISION-MAKING Aged Out No longer eligible based on patient's age to complete this topic MENINGOCOCCAL GROUPS A/C/Y/W VACCINE Aged Out No longer eligible b ased on patient's age to complete this topic Goals Goal Patient Goal Type Associated Problems Recent Progress Patient-Stated? Author Blood Pressure < 140/90 Blood Pressure 122/78(2015 5:44 PM SHEET CATCHER) No Mary Marte MA Medical Devices Implanted Type Area Combination Operator Device Identifier Shelf Expiration Date Model / Serial / Lot Dev Sys Sgl Obtryx Implanted:Qty: 1 on 09/24/2013 by Lex Curiel MD at [facility] N/A: Vagina 3D [employer] Solutionsmed 07/12/2016 [id number] / / [id number] Procedures Procedure Name Priority Date/Time Associated Diagnosis Comments DEXA BONE DENSITY 2 SITES Routine 03/18/2014 from Last 3 Months or Most Recently Relevant to Health Maintenance Results * DEXA BONE DENSITY 2 SITES (03/18/2014) Anatomical Region Laterality Modality Other Provider Unknown DEXA ORDERABLES from Last 3 Months or Most Recently Relevant to Health Maintenance Insurance Payer Benefit Plan / Group Subscriber ID Effective Dates Phone Address Type MEDICARE WPS MEDICARE PART B [id number] 2011-Prese nt [address] [address] [place] [address] Medicare MEDICARE MEDICARE PART A AND B [id number] 2011-Prese nt [address] [place] [address] Medicare AARP AARP MEDICARE SUPPLEMENT [id number] 2011-Prese nt [address] [place] [address] Commercial MEDICARE [place] MEDICARE [id number] 2011-Prese nt [address] [place] [address] Medicare Advance Directives Documents on File Type Date Recorded Patient Flavor Maker Expl anation Adv Directive/Living Will/POA 09/26/2013 3:41 PM * FULL RESUSCITATION (Latest Code Status on File) Date Activated Date Inactivated Comments 09/24/2013 4:57 PM 09/25/2013 6:58 PM * FULL RESUSCITATION Date Activated Date Inactivated Comments 09/24/2013 12:07 PM 09/24/2013 4:57 PM Care Teams Car Usher Relationship Specialty Start Date End Date Lorenzo Magallanes MD [address] [place] [address] Psychiatry 04/10/15
--- OUTSIDE RECORDS SUMMARY | 2025-01-28 10:59 | XMS_ITS | Encounter Summary ---
Author Organization [facility] Facility Care Team Providers Care Oracle Ebs Consultant Name Role Phone Nigel Saunders MD Primary Care Provider + Briana Rivera RN Unavailable [phone] Encounter Details Date Type Department Care Team (Latest Contact Info) Description 06/27/2018 Orders Only [facility] CLINCON[facility] ProviderElana MD [address] [place] [address] Social History Tobacco Use Types Packs/Day Years Used Date Smoking Tobacco: Never Smokeless Tobacco: Never Alcohol Use Standard Drinks/Week Comments Yes 0 (1 standard drink = 0.6 oz pur e alcohol) Comments Unknown Sex and Gender Information Value Date Recorded Sex Assigned at Not on file Legal Sex Female 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 Gender Identity Female 03/18/2021 10:47 AM CDT Sexual Orientation Not on file documented as of this encounter Plan of Treatment Not on file documented as of this encounter Procedures Procedure Name Priority Date/Time Associated Diagnosis Comments SCAN - PATHOLOGY 06/28/2018 12:0 0 AM CDT documented in this encounter Results * SCAN - PATHOLOGY (06/28/2018 12:00 AM CDT) Narrative 06/28/2018 12:00 AM CDT Ordered by an unspecified [...] documented as of this encounter Care Teams Oracle Ebs Consultant Relationship Specialty Start Date End Date Nigel Saunders MD [address] [facility] [address], [place] [address] PCP - General 02/09/17 Briana Rivera RN [address] [place] [address] [address] [place] [address] Legal Advisor 06/18/20 07/19/20 documented as of this encounter
--- OUTSIDE RECORDS SUMMARY | 2025-01-28 11:00 | XMS_ITS ---
Author Organization [facility] [employer] [facility] Address [address] [facility] [address] [facility] [address] [place] [address] Care Team Providers Care Printed Circuit Board Layout Designer Name Role Phone Deanna Hairston Unavailable [phone] REASON FOR VISIT Clonazepam refill Social History Sex Assigned At : Social History Observation Description Sex Assigned At Female Encounters Encounter Location Date Provider Diagnosis [facility] [address] [place] [id number] [facility] [address] [facility] [address] [place] [address] 08/07/2024 Deanna Marika Plan Of Treatment Next Appt Details Provider Name:Deanna Marika , 06/08/2025 10:45:00 AM, [address], [facility] [address], [place], [address], Progress Notes * WILL KATLINJULIAOB: 6 (79 yo F)Acc No.[id number]:08/07/2024 Patient: SLY MACIEL :1945 A ge:79 Y S ex:Female Phone: Address:[address], [place], [address] * true * Date: Generated for Printi ng/Faxing/eTransmitting on: 0 01/28/2025 10:59 AM CDT
--- OUTSIDE RECORDS SUMMARY | 2025-01-28 11:00 | XMS_ITS ---
Author Organization [facility] [employer] [facility] Address [address] [place] [address] Care Team Providers Care Roll Out Manager Name Role Phone Deanna Hairston Unavailable [phone] REASON FOR VISIT Billing question Social History Sex Assigned At : Social History Observation Description Sex Assigned At Female Encounters Encounter Location Date Provider Diagnosis [facility] [email or web address] [place] [id number] [facility] [address] [place] [address] 01/26/2025 Deanna Hairston Plan Of Treatment Next Appt Details Provider Name:Deanna Hairston , 06/08/2025 10:45:00 AM, [address], [facility] [address], [place], [address], Progress Notes * MELINA SOLISOB: 6 (79 yo F)Acc No.[id number]:01/26/2025 Patient: SLY MACIEL :1945 A ge:79 Y S ex:Female Phone: Address:[address], [place], [address] * * Date:
== END 2025-01-28 09:48 | disposition home or self-care (01) ==
LOC: ANHIMG 09:49
DX: Z12.31 Encounter for screening mammogram for malignant neoplasm of breast (principal)
CPT/HCPCS: 77063; 77067